=== PATIENT | female | born 1985 | race African-American/Black ===

== ENCOUNTER 2018-07-23 12:39 | Emergency (ER) | payer OTHER ==
[~2018-07-23] VITALS: Ht 167.6 cm; Wt 81.7 kg
[~2018-07-23 12:39] MED LIST: AMOXICILLIN500 M1 PO; BACTRIM DS TAB1 EACH PO; BIOTIN PO; CIPROFLOXACIN500 M1 PO; CLEOCIN HCL150 MG PO; FISH OIL SOFTG1 EACH PO; IBUPROFEN 600600 M1 PO; IBUPROFEN 800800 M1 PO; NOHOMEMEDICATIONS; NORCO 5-325 TA1 EACH PO; PENICILLIN V P500 MG PO; PERCOCET 5-3251 EACH PO; VITAMIN E PO; VITCB500GO PO; XANAX 0.25 MG0.25 MG PO
[2018-07-23] MEDS ORDERED: IBUPROFEN 600600 M1 PO (14:14)
[2018-07-23 15:27] VITALS: BP 154/92
== END 2018-07-23 14:25 | disposition home or self-care (01) ==
LOC: ER 12:39
DX: S70.01XA Contusion of right hip, initial encounter (principal); W18.30XA Fall on same level, unspecified, initial encounter; Y93.89 Activity, other specified; Y92.89 Other specified places as the place of occurrence of the external cause; Y99.8 Other external cause status